=== PATIENT | female | born 1955 | race Caucasian/White ===

== ENCOUNTER 2020-01-07 08:18 | Emergency (ER) | payer BC, OTHER ==
--- NOTE | 2020-01-07 08:45 | EDM.PDOC ---
ED HPI GENERAL MEDICAL PROBLEM - General Chief Complaint: Back Pain or Injury Stated Complaint: shortness of breath, back pain Time Seen by Provider: 01/07/20 08:45 Source of Information: Reports: Patient History Limitations: Reports: No Limitations - History of Present Illness INITIAL COMMENTS - FREE TEXT/NARRATIVE: Yesterday 06 January 2020 developed mild pain with deep inspiration. This progressed and has worsened since and with pain in the back near the spine limiting full inspiration. It is noted after examination and initial workup started she acknowledges that should shampooed her carpets last week. Predominant use of right arm. She relates that this pain is similar to one episode of pneumonia she had had years ago and is concerned for that with her history of asthma. She denies any travel or exposures, retired being at home predominantly with no significant changes due to the Covid 19 pandemic. No major changes in lifestyle, no difficulty with ambulation, no prolonged travel or risk factors to blood clot. Has had no fever or chills or change in constitutional factors. Onset Date: 01/06/20 Duration: Hour(s): Location: Reports: Chest, Back Quality: Reports: Pressure, Sharp Severity: Moderate Improves with: Reports: None Worsens with: Reports: Movement (Breathing) Associated Symptoms: Reports: No Other Symptoms upper back Pain Score (Numeric/FACES): 8 - Related Data Allergies Allergy/AdvReac Type Severity Reaction Status Date / Time don Allergy Severe Bronchospas Verified 01/07/20 09:01 ms venom-honey bee Allergy Intermediate Redness Verified 01/07/20 09:01 [bee venom (honey bee)] grass pollen Allergy Mild Itching Verified 01/07/20 09:01 No Known Drug Allergies Allergy Other Verified 01/07/20 09:01 Environmental Allergy Severe Bronchospas Uncoded 01/07/20 09:01 ms Pet Dander Allergy Severe Bronchospas Uncoded 01/07/20 09:01 ms Hay Fever Allergy Mild Sneezing Uncoded 01/07/20 09:01 Home Meds: Home Meds ALPRAZolam [Alprazolam] 1 mg PO DAILY 06/22/16 [History] Albuterol/Ipratropium [DuoNeb 3.0-0.5 MG/3 ML] 3 ml NEB Q6HRRT 06/22/16 [History ] FLUoxetine HCl [Prozac] 20 mg PO DAILY 06/22/16 [History] Levothyroxine Sodium [Synthroid] 137 mcg PO DAILY 06/22/16 [History] Fluticasone Propionate [Flonase] 1 gm NASBOTH DAILY #1 bottle 06/24/16 [Rx] Levofloxacin [Levaquin] 750 mg PO DAILY #4 tablet 06/24/16 [Rx] B-Complex with Vitamin C [Super B Complex-Vitamin C] 1 each PO DAILY 01/07/20 [ History] Budesonide [Budesonide EC] 3 mg PO DAILY 01/07/20 [History] Escitalopram Oxalate [Lexapro] 20 mg PO DAILY 01/07/20 [History] Fluticasone/Salmeterol [Advair 500-50] 1 puff INH BID 01/07/20 [History] Past Medical History HEENT History: Reports: Impaired Vision Cardiovascular History: Reports: None Respiratory History: Reports: Asthma, COPD Gastrointestinal History: Reports: Chronic Diarrhea, [employer] History: Reports: Neurological History: Reports: Other (See Below) Other Neuro History: been told has migraines with out pain, Endocrine/Metabolic History: Reports: Hypothyroidism - Infectious Disease History Infectious Disease History: Reports: Chicken Pox, Other (See Below) Other Infectious Disease History: whooping cough - Past Surgical History HEENT Surgical History: Reports: Other (See Below) Female Surgical History: Reports: Tubal Ligation Musculoskeletal Surgical History: Reports: Other (See Below) Social & Family History - Family History Family Medical History: Noncontributory - Caffeine Use Caffeine Use: Reports: Coffee Caffeine Use Comment: 2 cups in morning ED ROS GENERAL - Review of Systems Review Of Systems: Comprehensive ROS is negative, except as noted in HPI. ED EXAM, GENERAL - Physical Exam Exam: See Below Exam Limited By: No Limitations General Appearance: Alert, WD/WN, No Apparent Distress Ears: Normal External Exam, Normal Canal, Hearing Grossly Normal, Normal TMs Nose: Normal Inspection, Normal Mucosa, No Blood Throat/Mouth: Normal Inspection, Normal Lips, Normal Teeth, Normal Gums, Normal Oropharynx, Normal Voice, No Airway Compromise Head: Atraumatic, Normocephalic Neck: Normal Inspection, Supple, Non-Tender, Full Range of Motion Respiratory/Chest: No Respiratory Distress, Lungs Clear, Normal Breath Sounds, No Accessory Muscle Use (Tenderness to the posterior thorax on the column itself slightly to the right. This is significantly improved if doing manual compression stability to the chest wall during breaths.) Cardiovascular: Normal Peripheral Pulses, Regular Rate, Rhythm, No Edema, No Gallop, No JVD, No Murmur, No Rub GI/Abdominal: Normal Bowel Sounds, Soft, Non-Tender, No Organomegaly, No Distention, No Abnormal Bruit, No Mass (Female) Exam: Deferred Rectal (Female) Exam: Deferred Back Exam: Normal Inspection, Vertebral Tenderness (T5 to 9 region, right side,) Extremities: Normal Inspection, Normal Range of Motion, Non-Tender, Normal Capillary Refill, No Pedal Edema Neurological: Alert, Oriented, CN II-XII Intact, Normal Cognition, Normal Gait, Normal Reflexes, No Motor/Sensory Deficits Psychiatric: Normal Affect Skin Exam: Warm, Dry, Intact, Normal Color, No Rash Lymphatic: No Adenopathy EKG INTERPRETATION EKG Date: 01/07/20 Time: 08:48 Rhythm: NSR Reeds: Normal P-Wave: Present QRS: Normal ST-T: Normal QT: Normal Course - Vital Signs Last Recorded V/S: Last Vital Signs Temp 35.3 C L 01/07/20 08:21 Pulse 84 01/07/20 08:21 Resp 18 01/07/20 08:21 BP 134/73 01/07/20 08:21 Pulse Ox 97 01/07/20 08:21 - Orders/Labs/Meds Orders: Active Orders 24 hr Category Date Time Status EKG Documentation Completion [RC] ASDIRECTED Care 01/07/20 08:50 Active EKG 12 Lead [EK] Routine Ther 01/07/20 08:50 Ordered Labs: Laboratory Tests 01/07/20 01/07/20 01/07/20 Range/Units 08:40 08:40 08:40 WBC 10.90 H (5.00-10.00) 10^3/uL RBC 4.37 (3.80-5.50) 10^6/uL Hgb 14.1 (12.0-16.0) g/dL Hct 43.2 (37.0-47.0) % MCV 98.9 H (82.0-92.0) fL MCH 32.3 H (27.0-31.0) pg MCHC 32.6 (32.0-36.0) g/dL RDW 13.0 (11.5-14.5) % Plt Count 320 (150-400) 10^3/uL MPV 10.0 (7.4-10.4) fL Immature Gran % (Auto) 0.3 (0.0-5.0) % Neut % (Auto) 65.6 (50.0-70.0) % Lymph % (Auto) 22.3 (20.0-40.0) % Evangeline % (Auto) 9.4 H (2.0-8.0) % Eos % (Auto) 2.0 (1.0-3.0) % Baso % (Auto) 0.4 (0.0-1.0) % Immature Gran # (Auto) 0.03 (0.00-0.50) 10^3/uL Neut # (Auto) 7.16 H (2.50-7.00) 10^3/uL Lymph # (Auto) 2.43 (1.00-4.00) 10^3/uL Evangeline # (Auto) 1.02 H (0.10-0.80) 10^3/uL Eos # (Auto) 0.22 (0.10-0.30) 10^3/uL Baso # (Auto) 0.04 (0.00-0.10) 10^3/uL D-Dimer, Quantitative 250 (<400) ng/mL Sodium 141 (136-145) mmol/L Potassium 3.8 (3.3-5.3) mmol/L Chloride 104 (98-115) mmol/L Carbon Dioxide 27.0 (21.0-32.0) mmol/L Anion Gap 13.8 (5-15) mmol/L BUN 12 (6-25) mg/dL Creatinine 0.74 (0.51-1.17) mg/dL Est Cr Clr Drug Dosing 68.20 mL/min Estimated GFR (MDRD) > 60 mL/min Glucose 97 (75 - 99) mg/dL Calcium 9.3 (8.7-10.3) mg/dL Total Bilirubin 0.6 (0.2-1.0) mg/dL AST 21 (15-37) U/L ALT 35 (12-78) U/L Alkaline Phosphatase 73 (46-116) IU/L Troponin I 0.06 (0.00-0.070) ng/mL Total Protein 7.2 (6.4-8.2) g/dL Albumin 4.06 (3.00-4.80) g/dL Meds: Medications Discontinued Medications Generic Name Dose Route Start Last Admin Trade Name Davonte PRN Reason Stop Dose Admin Ketorolac Tromethamine 60 mg 01/07/20 09:38 01/07/20 09:44 Toradol IM 01/07/20 09:39 60 mg ONETIME ONE Administration - Re-Assessments/Exams Free Text/Narrative Re-Assessment/Exam: 01/07/20 09:53 Reassessment after x-ray, significant improvement with manual AP and posterior to anterior compression with my hands during inspiration cycle. Likely rib head or ligamentous issue to the right side that could've been induced with her carpet shampooing. Departure - Departure Time of Disposition: 09:55 Disposition: Home, Self-Care 01 Condition: Good Clinical Impression: Costochondritis, acute, Back pain due to inflammatory process - Discharge Information *PRESCRIPTION DRUG MONITORING PROGRAM REVIEWED*: Not Applicable *COPY OF PRESCRIPTION DRUG MONITORING REPORT IN PATIENT RADHA: Not Applicable Referrals: Glenda Garcia PA-C [Primary Care Provider] - Forms: ED Department Discharge Additional Instructions: Avoid overuse of the upper extremities, predominantly right arm. It is possible this was induced with your carpet shampooing. Anti-inflammatories, ibuprofen may be used 800 mg, every 8 hours with food, as needed. You may wish to stop retake her stomach proton pump inhibitor if you have any left for stomach protection if this goes more than 2 or 3 days. Warm compress, warm showers, or warm soaks may benefit this as well. Mild stretching activities of the upper extremities such as wrapping her arms around herself like giving herself a hug may help stretch out and improved status. Continue your medications as directed. Consideration for colonoscopy as it has been greater than 10 years and your being treated for a gastrointestinal issue. Consideration for pulmonary consult would be given if any changes senior chronic respiratory status would occur. Current medications seemed to be doing nicely at this time. Flat diaphragm appearance consistent with COPD. Consideration for chiropractor, or physical therapy, for treatment of what is likely a rib/rib head malalignment on your spine. Call clinic or return to the emergency department if symptoms worsen or persist despite treatment Sepsis Event Note - Focused Exam Vital Signs: Vital Signs Temp Pulse Resp BP Pulse Ox 01/07/20 08:21 35.3 C L 84 18 134/73 97 Date Exam was Performed: 01/07/20 Time Exam was Performed: 10:00 - Problem List & Annotations (1) Back pain due to inflammatory process SNOMED Code(s): 211488500, 861823023 Code(s): M54.89 - OTHER DORSALGIA Status: Acute Priority: Medium Current Visit: Yes (2) Costochondritis, acute SNOMED Code(s): 66660468, 39963419 Code(s): M94.0 - CHONDROCOSTAL JUNCTION SYNDROME [TIETZE] Status: Acute Priority: Medium Current Visit: Yes - Problem List Review Problem List Initiated/Reviewed/Updated: Yes - My Orders Last 24 Hours: My Active Orders 01/07/20 08:50 EKG Documentation Completion [RC] ASDIRECTED EKG 12 Lead [EK] Routine - Assessment/Plan Last 24 Hours: My Active Orders 01/07/20 08:50 EKG Documentation Completion [RC] ASDIRECTED EKG 12 Lead [EK] Routine Plan: Avoid overuse of the upper extremities, predominantly right arm. It is possible this was induced with your carpet shampooing. Anti-inflammatories, ibuprofen may be used 800 mg, every 8 hours with food, as needed. You may wish to stop retake her stomach proton pump inhibitor if you have any left for stomach protection if this goes more than 2 or 3 days. Warm compress, warm showers, or warm soaks may benefit this as well. Mild stretching activities of the upper extremities such as wrapping her arms around herself like giving herself a hug may help stretch out and improved status. Continue your medications as directed. Consideration for colonoscopy as it has been greater than 10 years and your being treated for a gastrointestinal issue. Consideration for pulmonary consult would be given if any changes senior chronic respiratory status would occur. Current medications seemed to be doing nicely at this time. Flat diaphragm appearance consistent with COPD. Consideration for chiropractor, or physical therapy, for treatment of what is likely a rib/rib head malalignment on your spine. Call clinic or return to the emergency department if symptoms worsen or persist despite treatment.
[2020-01-07 08:50] VITALS: BP 134/73; PULSE 84
--- NOTE | 2020-01-07 09:17 | CR ---
[id number] RAD/RAD Chest PA And Lateral EXAM: FRONTAL AND LATERAL CHEST INDICATION: Shortness of breath. COMPARISON: December 14, 2017. DISCUSSION: Chronic pleural and parenchymal scarring in the left lung base. Mild hyperinflation suggests underlying chronic obstructive pulmonary disease. Chronic left rib, left clavicle and lower thoracic compression fractures have not appreciably changed. No acute infiltrates are identified. Normal heart size. IMPRESSION: 1. No acute findings. Dung Virgen MD 01/07/20 0916 Thank you for allowing us to participate in the care of your patient.
[2020-01-07 09:19] LABS: ANION GAP 13.8 mmol/L (5-15); CHLORIDE,CL 104 mmol/L (98-115); SODIUM,NA 141 mmol/L (136-145)
[2020-01-07] MEDS ORDERED: Ketorolac 60 MG/2 ML SDV IM ONE (09:38)
== END 2020-01-07 10:04 | disposition home or self-care (01) ==
LOC: KA.ED 08:18
DX: M94.0 Chondrocostal junction syndrome [Tietze] (principal); M54.6 Pain in thoracic spine; E03.9 Hypothyroidism, unspecified; J44.9 Chronic obstructive pulmonary disease, unspecified; Z79.899 Other long term (current) drug therapy; Z91.030 Bee allergy status; Z91.09 Other allergy status, other than to drugs and biological substances
CPT/HCPCS: 36415; 71046; 80053; 84484; 85025; 85379; 93005; 96372; 99285; J1885